=== PATIENT | female | born 1960 | race Caucasian/White ===

== ENCOUNTER → 2021-08-17 | Day surgery (SDC) | payer OTHER ==
[~2021-08-17] VITALS: Ht 149.9 cm; Wt 60.8 kg
[~2021-08-17] MED LIST: BUPROPION XL300 MG PO; MINOCYCLINE HC100 MG PO; ROSUVASTATIN CA10 MG PO
== END | disposition home or self-care (01) ==
LOC: FAS 08:12
DX: Z12.11 Encounter for screening for malignant neoplasm of colon (principal); E78.00 Pure hypercholesterolemia, unspecified; Z87.891 Personal history of nicotine dependence
CPT/HCPCS: J2250; J2405; J2704; J7120